=== PATIENT | male | born 1960 | race Caucasian/White ===

== ENCOUNTER 2023-12-09 07:11 | Day surgery (SDC) | payer OTHER ==
[~2023-12-09 07:11] MED LIST: SODIUM CHLORIDE 0.9% 1,000 ML ONE
[2023-12-09] MEDS ORDERED: FentaNYL CITRATE PF 100 MCG/2 ML VIAL ONE (08:23)
[2023-12-09] MEDS ORDERED: MIDAZOLAM HCL 2 MG/2 ML VIAL ONE (08:24)
[2023-12-09] MEDS ORDERED: GABA-1201 PO (08:33)
[2023-12-09] MEDS ORDERED: ASPI-1450 PO (08:33)
[2023-12-09] MEDS ORDERED: OMEP20 PO (08:35)
[2023-12-09] MEDS ORDERED: NAPR-1025 PO (08:35)
[2023-12-09] MEDS ORDERED: SIMV-259 PO (08:37)
[2023-12-09] MEDS ORDERED: MONT-35 PO (08:39)
[2023-12-09] MEDS ORDERED: MOME13HF11 IH (08:39)
[2023-12-09] MEDS ORDERED: FLUT16SP NASAL (08:40)
[2023-12-09] MEDS: SODIUM CHLORIDE 0.9% 1,000 ML IV ONE (08:58)
[2023-12-09] MEDS ORDERED: MethylPREDNISolone SOD SUCC 125 MG/2 ML VIAL ONE (09:39)
[2023-12-09 09:50] VITALS: PULSE 67; RESP 18; O2SAT 98
[2023-12-09] MEDS: MethylPREDNISolone SOD SUCC 125 MG/2 ML VIAL IVP ONE (10:40)
[2023-12-09] MEDS ORDERED: LIDOCAINE 4% 50 ML SOLUTION ONE (12:00)
[2023-12-09] MEDS ORDERED: ALBUTEROL SULFATE 2.5 MG/0.5 ML NEB SOLUTION NEB ONE (12:00)
[2023-12-09] MEDS ORDERED: LIDOCAINE 2% 11 ML JELLY ONE (12:00)
[2023-12-09] MEDS ORDERED: BENZOCAINE 20% 50 MCG/SPRAY 57 GM ONE (12:00)
== END 2023-12-09 11:40 | disposition home or self-care (01) ==
LOC: SURGERY 07:11
PROVIDERS: ATTEND Internal Medicine Critical Care Medicine
DX: R05.3 Chronic cough (principal); R04.2 Hemoptysis; J98.09 Other diseases of bronchus, not elsewhere classified; J84.10 Pulmonary fibrosis, unspecified; J98.8 Other specified respiratory disorders; R07.9 Chest pain, unspecified; Z85.21 Personal history of malignant neoplasm of larynx
CPT/HCPCS: 31623; 87206; 87101; 87220; 87070; 88108; 31624; 71045; 87015; J3010; J2250; J2919; J7030; J7613; Z7610